=== PATIENT | male | born 1985 | race Caucasian/White ===

== ENCOUNTER 2017-05-14 22:53 | Observation (INO) ==
[2017-05-14] MEDS ORDERED: Ringers Solution, Lactated 1,000 ML IVC SCH (23:30)
[2017-05-14] MEDS ORDERED: cefOXitin 2,000 MG in Water for inj. (sterile) 20 ML 20 ML IVP ONE (23:31)
--- NOTE | 2017-05-14 23:33 | Anesthesia Evaluation PreOp ---
Date of Encounter: 05/15/17 Time of Encounter: 23:31 - Past History Planned Operation: Laparoscopic Appendectomy Cardiac History: Denies any Significant Hx Pulmonary History: Smoker (7 years), Snore HEALTH MANAGEMENT CONSULTANT History: Denies Any Significant HX Other Medical History: Denies Any Significant HX Anesthesia History: No Prior Anesthetic Complications, Past Anesthesia Alcohol Use: rarely Drug use: none Medications and Allergies No Known Home Drugs 05/14/17 [History] 3 Allergy/AdvReac Type Severity Reaction Status Date / Time No Known Allergies Allergy Verified 05/14/17 22:59 - Meds/Allergy Pre-op Review Medications Reviewed: Yes Allergies Reviewed: Yes Beta Blockers on Current Med List: No Anesthesia Results - Labs Laboratory Tests 05/14/17 05/14/17 18:25 18:25 WBC 17.2 H Hgb 15.0 Hct 40.7 Plt Count 184 Sodium 136 Potassium 3.9 BUN 10 Creatinine 0.96 Anesthesia Exam Vital Signs/O2 Sat, Most Current Temp Pulse Resp BP Pulse Ox 99.0 F 79 16 158/90 97 05/14/17 22:57 05/14/17 22:57 05/14/17 22:57 05/14/17 22:57 05/14/17 22:57 Height: 6'3''/1.91m Weight: 271 lbs/122.9 kg NPO (# of Hours): 8 Pain Scale: 8 (abdomen) Pain Scale Used: Numeric (1 - 10) - HEENT Pupil (Motor): EOMI Mallampati: II Teeth: Normal Oral Opening: Greater than 3 - HEALTH MANAGEMENT CONSULTANT LOC: Oriented HEALTH MANAGEMENT CONSULTANT Motor: Normal RUE, Normal LUE, Normal RLE, Normal LLE, Normal Face HEALTH MANAGEMENT CONSULTANT Sensory: Normal: RUE, LUE, RLE, LLE, Face - Cardiac Rhythm: Regular Murmur: None - Pulmonary Breath Sounds: bilateral Clear Respiratory Effort: Symmetrical Anesthesia Assess/Plan ASA Score: 2 Modified [place] Scale for Level of Consciousness: Cooperative, oriented, and tranquil Anesthetic Plan: General Monitoring Plan: Standard Monitors Recovery Plan: PACU
--- NOTE | 2017-05-14 23:42 | General Surg History&Physical ---
Date of Encounter: 05/14/17 Time of Encounter: 23:25 History of Present Illness Chief complaint: acute right lower quadrant abd pain, acute appendictiss HPI: Mr. Vázquez is a 31 year old male transferred from [facility] for further evaluation and treatment of new onset right lower quadrant abdominal pain. Patient indicates symptoms began abruptly at about 1100 hrs. this morning. He had some nausea and vomiting but the pain has become progressively worse. He presented to [facility] where he was evaluated and diagnosed with acute appendicitis. Past medical history: Unremarkable Surgical history: Tonsils and adenoidectomy; wisdom teeth extraction Allergies: No known drug allergies Medications: None; patient takes oqbe-bir-thgyile vitamins Social history: Patient is , lives with his spouse; admits to less than a pack of cigarettes daily for the past 10 years; he denies any illicit drug use. He admits to alcohol approximately one or 2 times monthly Physical examination: Age-appropriate male: 1.91 m tall, 122.9 kg, BMI 33.9. On arrival at [facility], temperature 99.0, pulse 79, respirations 16, blood pressure 158/90. SPO2 on room air 97%. Skin: Warm, no obvious jaundice; multiple cutaneous tattoos are evident Cardiac: Regular rate, no appreciable murmurs Lungs: Clear to auscultation with minimal right lower quadrant pain on deep inspiration Abdomen: Soft, tenderness most prominent in the right lower quadrant; minimal pain referred from the left lower quadrant. No obvious rebound. No appreciable intra-abdominal masses. Hypoactive bowel sounds Extremities without clubbing, cyanosis, or edema. Laboratories: White count 17.2 with 14.6% neutrophils; hemoglobin 15.0, hematocrit 40.7; platelet count 184,000. Electrolytes, BUN, creatinine within normal limits. LFTs within normal limits Urinalysis notable for specific gravity of 1.025, pH 7.0; no other significant findings such as ketones, blood, nitrate, or cellular components. CT abdomen/pelvis: Lower lung garcia clear; appendix is dilated and fluid- filled measuring approximately 13 mm in diameter. There is accompanying periappendiceal stranding consistent with acute appendicitis. No evidence of appendiceal rupture or abscess. Impression: 31-year-old male with abrupt onset right lower quadrant abdominal pain with nausea and vomiting since approximately 1100 this morning. Patient has experienced progressive abdominal pain with clinical and radiologic findings consistent with acute appendicitis. Surgery has been recommended. The patient is a reasonable candidate for laparoscopic appendectomy but understands an open appendectomy may become necessary. Risks of surgery include hemorrhage, infection, intra-abdominal abscess, injury to adjacent structures such as bladder ureters and adjacent bowel; we also discussed if the appendix is normal, it will be removed to eliminate this diagnosis in the future. The patient and his expressed understanding and are willing to proceed as recommended. Surgical consent has been obtained. Past Med Surg Social Fam HX - Past Medical History Medical history: no medical history Psychiatric history: no psych history - Social History Smoking Status: Current every day smoker Alcohol use: rarely Drug use: none Medications and Allergies No Known Home Drugs 05/14/17 [History] 3 Allergy/AdvReac Type Severity Reaction Status Date / Time No Known Allergies Allergy Verified 05/14/17 22:59 Review of Systems All systems PM: A 10-system review of systems was performed and is negative for pertinent findings except as documented above in the HPI. General Surgery Exam Initial Vital Signs Temp Pulse Resp BP Pulse Ox 99.0 F 79 16 158/90 97 05/14/17 22:57 05/14/17 22:57 05/14/17 22:57 05/14/17 22:57 05/14/17 22:57 Results - Labs All other labs normal.
[2017-05-14] MEDS ORDERED: Lidocaine -MPF 2% 2 ML VIAL ONE (23:45)
[2017-05-14] MEDS ORDERED: *HR* Succinylcholine 200 MG/10 ML VIAL IVP ONE (23:45)
[2017-05-14] MEDS ORDERED: *HR* Midazolam HCl 2 MG/2 ML VIAL ONE (23:45)
[2017-05-14] MEDS ORDERED: *HR* Propofol 200 MG/20 ML VIAL IVP ONE (23:45)
[2017-05-14] MEDS ORDERED: *HR* FentaNYL (PF) 100 MCG/2 ML VIAL ONE (23:45)
[2017-05-14] MEDS ORDERED: *HR* Cisatracurium 10 MG/5 ML VIAL IV ONE (23:48)
[2017-05-15] MEDS ORDERED: Albuterol 2.5 MG/3 ML NEBULIZER ONE
[2017-05-15] MEDS ORDERED: Acetaminophen IV 1,000 MG/100 ML INFUS..BTL ONE
[2017-05-15] MEDS ORDERED: Albuterol 2.5 MG/3 ML NEBULIZER IH ONE (00:03)
[2017-05-15] MEDS ORDERED: *HR* EPINEPHrine 30 MG/30 ML MDV ONE (00:04)
[2017-05-15] MEDS ORDERED: MORPHINE SUL Oral CONC 10 MG/0.5 ML ORAL.SYG SL PRN (00:11)
[2017-05-15] MEDS ORDERED: *HR* OxyCODONE Immed Rel 5 MG TABLET PO PRN ×2 (00:11→02:40)
[2017-05-15] MEDS ORDERED: Ondansetron 4 MG/2 ML VIAL ONE (00:39)
[2017-05-15] MEDS ORDERED: Dexamethasone 4 MG/ML VIAL ONE (00:39)
[2017-05-15] MEDS ORDERED: Ketorolac 30 MG/ML VIAL ONE (00:44)
--- NOTE | 2017-05-15 01:48 | Operative Note ---
Date of procedure: 05/15/17 Pre-op diagnosis: Acute appendicitis Post-op diagnosis: other (Acute retrocecal appendicitis) Procedure: Laparoscopic appendectomy Complications: None apparent Anesthesia: GETA Local Anesthetics: 0.25% Sensorcaine HCL SubQ (cc) (20 mL (18 mL 0.25% bupivicaine with 2 mL 1mg/mL Epinephrine)) Surgeon: Baudilio Frazier Was there an special events assistant present: No Estimated blood loss (cc): 10 IV fluids (cc): 1,000 Specimen: appendix Condition: stable Disposition: PACU Procedure in Detail: The patient was brought to the operating room where he was placed on the operating room table. The patient was appropriately identified as to person and procedure. The accuracy of this information was confirmed by the patient and the procedure team. Surgical consent was reviewed and found to be accurate. The patient was intubated and anesthetized under the supervision of Dr. Juaquin Willard. The abdomen was then prepped and draped in usual sterile fashion. Several milliliters of bupivacaine with epinephrine (a mixture of 18 mL 0.25% bupivacaine with 2 mL 1 mg per mL epinephrine) was infiltrated the infraumbilical skin. A small transverse incision was made, dissection was carried to the fascia. The fascia was grasped and elevated. Additional bupivacaine with epinephrine was infiltrated before incising the fascia. An 11 mm Xcel port was established. The rigid laparoscope was placed within the obturator to visualize passage through the layers of the anterior abdominal wall. When the abdominal cavity was accessed, The obturator was replaced by the rigid laparoscope and the abdomen was insufflated with gaseous carbon dioxide. There was no obvious visible injury from establishing the port. Under direct visualization, a 5 mm port was placed in the midline suprapubically ; a 12 mm port was established in the left lower quadrant midclavicular line. Both of these sites were infiltrated with bupivacaine with epinephrine solution. The cecum was identified. The appendix was retrocecal with acute inflammation. There was no obvious perforation. The lateral peritoneal reflections were incised with endoscopic scissors. Dissection with proceeded with the aid of the Ethicon harmonic fatimah. A dilated, inflamed appendix was identified and exteriorized. The mesoappendix was divided using an Ethicon ATS 45 mm stapler (blue load). The appendix was dissected to its junction with the cecum where it was divided using a second application of the Ethicon ATS 45 mm stapler using a vascular cartridge. The appendix was from the surrounding structures and placed in an endoscopic pouch. The appendix was extracted through the infraumbilical opening. The appendix was retrieved and sent to pathology. The staple lines were inspected and found to be intact. A small amount of inflammatory fluid collected in the right paracolic gutter was suctioned with an endoscopic suction. Hemostasis was deemed adequate. The laparoscopic instrumentation was removed, the pneumoperitoneum was evacuated. The fascia of the infraumbilical opening was closed with interrupted figure-of- eight 0 Vicryl using S retractors. Additional bupivacaine with epinephrine was infiltrated into the fascia. The skin edges of the ports were then approximated with subcuticular 4-0 Vicryl. The incisions were sealed with Dermabond dermal adhesive. The patient was taken to recovery in stable condition. Needle, sponge, and instrument counts were correct at the close of the case. Total volume 0.25% bupivacaine with epinephrine, 20 mL.
--- NOTE | 2017-05-15 02:09 | Anesthesia Evaluation Post Op ---
Date of Encounter: 05/15/17 Time of Encounter: 02:09 - Vital Signs Vital Signs: Vital Signs/O2 Sat, Most Current Temp Pulse Resp BP Pulse Ox 98.8 F 105 20 145/75 93 05/15/17 01:49 05/15/17 01:59 05/15/17 01:59 05/15/17 01:59 05/15/17 01:59 - Lungs Lungs: Clear Ascult./Percussion - Airway Airway: Non-obstructed - Cardiovascular Regular Rate - Mental Status Mental Status: Asleep with brisk response to light stimulation - Pain Pain Scale: 0 Pain Scale used: Numeric (1 - 10) - Nausea Vomiting Nausea Vomiting: Not Present - Hydration Hydration: NPO, Has not voided - Discharge PostOp Status: Transfer Patient to floor
[2017-05-15] MEDS ORDERED: Ondansetron 4 MG/2 ML VIAL IVP PRN (02:40)
[2017-05-15] MEDS ORDERED: Acetaminophen 325 MG TABLET PO PRN (02:40)
[2017-05-15] MEDS ORDERED: Ringers Solution, Lactated 1,000 ML IVC SCH (02:40)
[2017-05-15] MEDS: Albuterol 2.5 MG/3 ML NEBULIZER IH SCH ×2 (03:53→09:58)
[2017-05-15 11:12] VITALS: BP 121/61
[2017-05-15 12:32] LABS: Basophils % 0.1 %; Hematocrit 35.7 % (37.5-50.1); Hemoglobin 13.1 g/dL (12.9-16.9); Immature Granulocytes % 0.6 % (0-4); Lymphocytes # 1.1 K/mcL (0.6-4.6); Lymphocytes % 7.2 %; Mean Corpuscular HGB Conc 36.7 g/dL (31.6-35.5); Mean Corpuscular Hemoglobin 31.6 pg (28.0-33.3); Mean Corpuscular Volume 86.2 fL (83.0-100.0); Mean Platelet Volume 9.6 fL (9.4-12.4); Monocytes # 0.9 K/mcL (0.0-1.3); Monocytes % 6.2 %; Neutrophils # 12.6 K/mcL (1.6-8.9); Platelet Count 175 K/mcL (140-400); Red Blood Count 4.14 M/mcL (4.19-5.50); Red Cell Distribution Width 12.2 % (11.5-14.5); Segmented Neutrophils % 85.9 %
[2017-05-15] MEDS ORDERED: *HR* OxyCODONE/APAP 5/325 TABLET PO PRN (13:22)
--- NOTE | 2017-05-15 13:28 | General Surgery Progress Note ---
Date of Encounter: 05/15/17 Time of Encounter: 13:23 Subjective Patient reports: feels better, pain is less Narrative: General Surgery - approx 11 hours post op Patient feeling better; he still has some minimal right lower quadrant abdominal pain but it is significantly improved from his preoperative status Patient denies any nausea or vomiting he is tolerating a regular diet. Patient remains afebrile, 97.9, pulse 94-110, respirations 1618, blood pressure 121/61. Lungs: Clear, no abdominal pain and deep inspiration Cardiac: Regular rate and the time of my examination; the patient has been intermittently tachycardic in the immediate postoperative period Abdomen: Soft, active bowel sounds. Port sites intact, clean and dry. Minimal right lower quadrant discomfort; no obvious left lower quadrant abdominal pain as noted preop Postoperative laboratories: White count is improved to 14.7, hemoglobin 13.1, hematocrit 37.5. Persistent neutrophils 12.6% but this is expected in response to surgery. It is expected to resolve without further intervention Impression: Acute retrocecal appendicitis- status post laparoscopic appendectomy Acceptable postoperative status Postoperative difficulty voiding; Rivera placed but has been removed. If patient able to void we will discharge home. Outpatient follow-up 05/21/17 Objective Vital Signs - Last 8 Hours Temp Pulse Resp BP Pulse Ox 05/15/17 11:09 97.9 F 110 18 121/61 94 05/15/17 10:00 16 95 05/15/17 08:39 93 05/15/17 07:30 97.8 F 94 18 118/67 93 05/15/17 05:35 98.1 F 98 18 120/66 93 Intake and Output 05/14/17 05/15/17 05/15/17 23:59 07:59 15:59 Intake Total 0 / 0 1524 / 1524 Output Total 610 / 610 650 / 650 Balance -610 / -610 874 / 874 Intake: IV Fluids 1284 / 1284 Lactated Ringers 1,000 ML @ 75 1284 / 1284 mls/hr IVC .[id number] [facility] Rx#: [id number] Oral 0 / 0 240 / 240 Output: Estimated Blood Loss 10 / 10 Catheter 600 / 600 650 / 650 Urethral (Rivera) 600 / 600 Other: Meal Breakfast Percent of Meal Consumed 100% Weight 122.5 kg Patient Weight 05/15/17 23:59 Weight 122.5 kg - Labs 05/15/17 12:04 - VTE Documentation of Mechanical Device: Graduated compression elastic hosiery Consult Discharge Plan - Plan Referrals: NONE,PCP [Primary Care Provider] - Aguila Engle [Family Provider] -
--- NOTE | 2017-05-15 13:31 | Discharge Summary ---
Outpatient Proc Discharge Plan - Plan Additional Instructions: Regular diet Activity as tolerated; lifting limited to less than 20 pounds Patient may shower, wash incisions with soap and water Patient should not drive until at least 24 hours after administration of anesthesia Tylenol, ibuprofen, Motrin, Aleve, etc. as needed for pain Option for Percocet 5/325, #8, 1 every 6 hours as needed for pain not relieved by [id number] medication. Follow-up my office, 05/21/17. Home Medications: No Known Home Drugs 05/14/17 [History]
== END 2017-05-15 15:04 | disposition home or self-care (01) ==
LOC: 3ANU 22:53 → EMEROO 22:53 → 3ANU 05-15 00:13
PROVIDERS: ADMIT Surgery; ATTEND Surgery